=== PATIENT | female | born 1995 | race Caucasian/White ===

== ENCOUNTER 2024-10-02 15:02 | Outpatient (AMB) | payer BC, SELFPAY ==
--- NOTE | 2024-10-02 15:25 | MHC.PC.OV ---
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 patient is experience some depression as well as some fatigue. 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 Childhood asthma, Migraines SurgHx: Wendel teeth FHx: Mom: Fibromyalgia, Mental health problems. Dad: Mental Health. Brother: Adhd SocHx: Nonmoker. ETOH: Social/Infreq. 2-3 times per week 1 drink. 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 1. Little interest or pleasure in doing things: more than half the days 2. Feeling down, depressed, or hopeless: several days 3. Trouble falling or staying asleep, or sleeping too much: more than half the days 4. Feeling tired or having little energy: nearly every day 5. Poor appetite or overeating: several days 6. Feeling bad about yourself - or that you are a failure or have let yourself or your family down: several days 7. Trouble concentrating on things, such as reading the newspaper or watching television: more than half the days 8. Moving or speaking so slowly that other people could have noticed. Or the opposite - being so fidgety or restless that you have been moving around a lot more than usual: several days 9. Thoughts that you would be better off or of hurting yourself in some way: not at all Total score: 13 Depression Screening Interpretation: Positive Depression Screening Done: Yes 72307 - PHQ-9 Billing: Yes Source: Developed by Drs. Mateo Day, Lina Salinas, Juan José Pat and colleagues, with an educational emilio from [email or web address]. Thrive Questionnaire Date Thrive assessed: 10/02/24 I am a: Patient What is your living situation today?: I have a steady place to live Within the past 12 months, did the food you bought not last and you didn't have the money to get more?: Never true Within the past 12 months, did you worry whether your food would run out before you got money to buy more?: Never true Do you have trouble paying for medicines?: No Do you have trouble getting transportation to medical appointments?: No Do you have trouble paying your heating and electricity bill?: No Do you have trouble taking care of your child, family member or friend?: No Do you have trouble with day-to-day activities such as bathing, preparing meals, shopping, managing finances, etc.?: No Are you currently unemployed and looking for a job?: No Are you interested in more education?: Yes Please select the resources that you would like help with: None Currently or been in a relationship where the following occur: No concerns reported THRIVE Score: 0 AUDIT C Alcohol Use Questionnaire (AUDIT-C) 1. How often do you have a drink containing alcohol?: 2-3 times a week 2. How many drinks containing alcohol do you have on a typical day when you are drinking?: 1 or 2 3. How often do you have six or more drinks on one occasion?: Less than monthly Total Score: 4 WINSOME-7 AMB Questionnaire WINSOME-7 Date WINSOME - 7 assessed: 10/02/24 Feeling nervous, anxious, or on edge: 2 = More than half the days Not being able to stop or control worryin = More than half the days Worrying too much about different things: 3 = Nearly every day Trouble relaxin = More than half the days Being so restless that it is hard to sit still: 1 = Several days Becoming easily annoyed or irritable: 3 = Nearly every day Feeling afraid as if something awful might happen: 2 = More than half the days Total WINSOME-7 score (0-4 normal; 5-9 mild; 10-14 moderate; 15-21 severe): 15 Source: Developed by Drs. Mtaeo Day, Lina Salinas, Juan José Pat and colleagues, with an educational emilio from [email or web address]. WINSOME-7 Assessment Billing WINSOME-7 Assessment Tool: WINSOME-7 Assessment 60798 Review of Systems Const Denies chills, Denies fatigue, Denies fever(s), Denies headache(s) and Denies weakness ENT Denies dizziness and Denies headache(s) Card Denies chest pain, Denies lightheadedness, Denies dyspnea and Denies other (Palpitations) Resp Denies cough, Denies dyspnea, Denies wheezing and Denies other ( shortness of breath) Musc Denies numbness and Denies tingling Neuro Denies dizziness, Denies headache(s), Denies numbness, Denies tingling, Denies paresthesias and Denies weakness Psych Denies anxiety and Denies depression Endo Denies fatigue Aller/Immun Denies wheezing Physical exam (Primary Care) Vital Signs: Last Vital Signs Temp 98.5 F 10/02/24 15:32 Pulse 98 10/02/24 15:32 Resp 16 10/02/24 15:32 BP 126/68 10/02/24 15:32 Pulse Ox 99 10/02/24 15:32 Oxygen Delivery Method Room Air 10/02/24 15:32 BMI result Body Mass Index 43.6 Tobacco/Smoking Status: Tobacco use Status Tobacco use date assessed 10/02/24 10/02/24 15:38 e-Cigarette/Vaping Use Never Used 10/02/24 15:38 PHQ-9: PHQ-9 Score PHQ-9: Total score 13 10/02/24 16:35 Depression Screening Interpretation: Positive Thrive Assessment: Date of Thrive Assessment Date Thrive assessed 10/02/24 10/02/24 15:38 Currently or been in a relationship where the following occur: No concerns reported Const General: no acute distress and well developed Nutritional Appearance: well nourished Orientation/consciousness: patient oriented x3 [facility] Head: Yes normocephalic and Yes atraumatic Eyes General: appearance normal, both eyes and all related structures Pupils: Equal, round and reactive pupils present EOM: EOMs intact bilaterally Resp Effort & Inspection: normal respiratory effort Auscultation: clear to auscultation bilaterally Cardio Rate: regular rate Rhythm: regular rhythm Heart sounds: S1 normal heart sound present, S2 normal heart sound present, no gallops, no murmurs and no rubs Neuro General: patient oriented x3 and gait normal Cranial nerves: Yes Equal, round and reactive pupils present Psych Affect: normal affect Coding Level of Care Code New Pt Level 3 (43450) Diagnoses Anxiety with depression F41.8 Migraines G43.909 Difficulty sleeping G47.9 TMJ (dislocation of temporomandibular joint) S03.00XA Laboratory exam ordered as part of routine general medical examination Z00.00 Additional Codes WINSOME-7 Assessment Billing - WINSOME-7 Assessment Tool: WINSOME-7 Assessment 25210 ([id number]) PHQ-9 - 15357 - PHQ-9 Billing: Yes ([id number]) Assessment & Plan Assessment & Plan (1) Anxiety with depression: Code(s): F41.8 - Other specified anxiety disorders Category: Medical Plan: History?of?anxiety?and?depression. She?is?currently?taking?fluoxetine?60?mg?daily?and?still?having?significant?anxiety?depression?with?high?PHQ-9?and?winsome?7?scores. She?has?had?a?therapist?in?the?past?but?currently?does?not?see?a?therapist.??Will?ask?the?nurse?navigator?to?help?connect?her?with?a?therapist. Will?trial?bupropion?as?adjunct?medication?with?her?fluoxetine. (2) Migraines: Code(s): G43.909 - Migraine, unspecified, not intractable, without status migrainosus Category: Medical Plan: History?of?migraines?with?stress/tension?and?neck?pain?triggers. She?has?used?Maxalt?in?the?past?which?had?helped?but?was?giving?her?jaw?pain. Will?try?a?low?dose?of?sumatriptan Start?physical?therapy?for?neck?and?jaw?attention (3) Difficulty sleeping: Code(s): G47.9 - Sleep disorder, unspecified Category: Medical Plan: Likely?secondary?to anxiety?and?depression. Treating?the?underlying?cause If?she?is?still?having?difficulty?sleeping?afterwards?will?look?for?other?causes. (4) TMJ (dislocation of temporomandibular joint): Code(s): S03.00XA - Dislocation of jaw, unspecified side, initial encounter Category: Medical Plan: Referred?to?physical?therapy Also?advised?she?follow-up?with?a?dentist She?can?try?an?jcew-hbw-rlutuup?mouth?guard?as?well (5) Laboratory exam ordered as part of routine general medical examination: Code(s): Z00.00 - Encounter for general adult medical examination without abnormal findings Category: Medical Plan: Check labs Orders: Orders Complete Blood Count Auto Diff Today Z00.00 - Encounter for general adult medical examination without abnormal findings Lipid Panel Today Z00.00 - Encounter for general adult medical examination without abnormal findings TSH reflex Free T4 Today Z00.00 - Encounter for general adult medical examination without abnormal findings UA CC w/rflx Micro + Cult Today Z00.00 - Encounter for general adult medical examination without abnormal findings Vitamin B12 and Folate Today E53.8 - Deficiency of other specified B group vitamins Hepatitis B,C Profile Today Z11.3 - Encounter for screening for infections with a predominantly sexual mode of transmission Syphilis Screen Today Z11.3 - Encounter for screening for infections with a predominantly sexual mode of transmission Comprehensive [place]. Panel Fast Today Z00.00 - Encounter for general adult medical examination without abnormal findings Microalbumin, Random (w Creat) Today I10 - Essential (primary) hypertension Vitamin D 25-OH Total Today E55.9 - Vitamin D deficiency, unspecified CT NG by PCR Today Z11.3 - Encounter for screening for infections with a predominantly sexual mode of transmission HIV Ab/Ag Today Z11.3 - Encounter for screening for infections with a predominantly sexual mode of transmission PT Evaluation and Treatment Today R51.9 - Headache, unspecified, S03.00XA - Dislocation of jaw, unspecified side, initial encounter Referrals Nurse Navigator Referral F41.8 - Other specified anxiety disorders Medications: New fluoxetine 40 mg PO QAM 90 days 90 caps 3RF bupropion HCl 75 mg PO BID 30 days 60 tabs 1RF sumatriptan succinate do not exceed 8 doses per 24 hrs 25 mg PO DAILY 30 days PRN 9 tabs 3RF migraine headache fluoxetine Total Daily Dose 60mg 20 mg PO DAILY 90 days 90 caps 3RF
[2024-10-02 15:32] VITALS: BP 126/68; PULSE 98; RESP 16; TEMP 36.9; O2SAT 99; BMI 43.6
== END 2024-10-02 16:12 | disposition home or self-care (01) ==
LOC: HO.HMCFM 15:03
PROVIDERS: PCP Family Medicine; Visit Provider Family Medicine
DX: F41.8 Other specified anxiety disorders (principal); G43.909 Migraine, unspecified, not intractable, without status migrainosus; G47.9 Sleep disorder, unspecified; S03.00XA Dislocation of jaw, unspecified side, initial encounter; Z00.00 Encounter for general adult medical examination without abnormal findings

== ENCOUNTER → 2024-10-02 15:02 | Outpatient (BNVA) | payer BC, SELFPAY | PROVIDERS: PCP Family Medicine; Visit Provider Family Medicine | DX: F41.8 Other specified anxiety disorders (principal); G43.909 Migraine, unspecified, not intractable, without status migrainosus; G47.9 Sleep disorder, unspecified; S03.00XD Dislocation of jaw, unspecified side, subsequent encounter; Z79.899 Other long term (current) drug therapy | CPT/HCPCS: 96127 ==

== ENCOUNTER 2025-01-09 07:00 | Outpatient (RCR) | payer BC, SELFPAY | END 2025-01-09 09:50 | disposition home or self-care (01) | LOC: HO.PT 07:00 | PROVIDERS: PCP Family Medicine; Visit Provider Family Medicine | DX: M26.623 Arthralgia of bilateral temporomandibular joint (principal); R51.9 Headache, unspecified; S03.00XD Dislocation of jaw, unspecified side, subsequent encounter | CPT/HCPCS: 97014; 97110; 97140; 97161 ==

== ENCOUNTER 2025-02-06 07:38 | Outpatient (REF) | payer BC, SELFPAY ==
--- OUTSIDE RECORDS SUMMARY | 2025-02-06 07:41 | XMS_ITS | Clinical Summary ---
Author Organization [address] [place] [address] [place] [id number] Phone Care Team Providers Care Criminal Justice Program Director Name Role Phone Unavailable Primary Care Provider Unavailabl e Allergies Active Allergy Reactions Criticality Noted Date Comments Adhesive Tape-Silicones 12/09/2021 Other Reaction(s): Rash/Dermatitis Sulfa (Sulfonamide Antibiotics) 12/09/2021 Other Reaction(s): Hives/Urticaria Medications hydrOXYzine HCL (ATARAX) 50 mg tablet Take 1 Tablet by mouth at bedtime. 4 Active fluticasone propionate (FLONASE) 50 mcg/actuation nasal spray 2 sprays each nostril once a day for 10 days. 2 Active rizatriptan (MAXALT) 10 mg tablet Take 1 Tablet by mouth as needed for Migraine for up to 30 days. May repeat in 2 hours if needed 3 Active ondansetron (ZOFRAN) 4 mg tablet Take 1 tablet (4 mg total) by mouth every 8 (eight) hours if needed. 3 Active predniSONE (DELTASONE) 20 mg tablet Take 3 tab by mouth for 2 days, then 2 tab by mouth for 2 days, then 1 tab by mouth for 2 days. Take with food in the morning. 12 tablet 4 Active beclomethasone dipropionate (Qvar RediHaler) 40 mcg/actuation HFA aerosol breath activated inhaler Inhale 1 puff by mouth 2 (two) times a day. 31.8 g 1 5 Active FLUoxetine (PROzac) 20 mg capsule Take 1 Capsule by mouth daily. Take with 40mg for a total of 60 30 capsule 5 Active FLUoxetine (PROzac) 40 mg capsule Take 1 Capsule by mouth daily. Take with 20mg for a total of 60mg daily 30 capsule 5 Active etonogestreL-eth inyl estradioL (NUVARING) 0.12-0.015 mg/24 hr vaginal ring Insert vaginally and leave in place for 3 consecutive weeks, then remove for 1 week. 3 each 5 Active albuterol HFA (PROAIR HFA ; PROVENTIL HFA ; VENTOLIN HFA) 90 mcg/actuation inhaler INHALE 2 PUFFS BY MOUTH EVERY 6 HOURS NEEDED FOR WHEEZE OR FOR SHORTNESS OF BREATH 54 each 1 5 Active Active Problems Problem Noted Date Diagnosed Date Reactive airway disease 09/13/2023 Anxious depression 07/27/2022 Major depressive disorder, r ecurrent episode, moderate (CMS/HCC V24, CMS/[facility] V28) 07/27/2022 Migraine without status migrainosus, not intract able 07/27/2022 Immunizations Name Administration Dates Next Due Influenza Quadravalent, MDCK , 0.5ml, preservative free (Flucelvax) 6mo and older 06/29/2022 Influenza Quadravalent, MDCK , 0.5ml, with preservative (Flucelvax) 6mo and older 06/17/2019 Influenza, Unspecified 06/29/2022 Tdap Tetanus diptheria acell ular pertussis (Boostrix; Adacel) 7yo and older 06/29/2022 Surgical History Surgery Date Site/Laterality Comments OTHER SURGICAL HISTORY 2003 Right PROCEDURE: HISTORY OTHER; COMMENT: ORIF wrist, subsequent hardware removal WISDOM TOOTH EXTRACTION PROCEDURE: HISTORICAL WISDOM TEETH EXTRACTION Medical History Medical History Date Comments Depression with anxiety DX:Depre ssion with anxiety History of migraine DX:History o f migraine Family History Medical History Relation Name Comments No Known Problems Brother No Known Problems Father Diabetes Maternal Grandfather Dementia Maternal Grandmother Parkinson's Disease Maternal Grandmother Other: fibromyalgia Mother Heart attack Paternal Grandfather Stroke Paternal Grandfather Relation Name Status Comments Brother Alive Father Alive Maternal Grandfather Alive Maternal Grandmother (Age 70) Mother Alive Paternal Grandfather Paternal Grandmother Alive Social History Tobacco Use Types Packs/Day Years Used Date Smoking Tobacco: Never Smokeless Tobacco: Never Alcohol Use Standard Drinks/Week Comments Yes 0 (1 standard drink = 0.6 oz pur e alcohol) Comments Unknown Sex and Gender Information Value Date Recorded Sex Assigned at Not on file Legal Sex Female 4:04 PM EST Gender Identity Not on file Sexual Orientation Not on file Obstetrics History Last Filed Vital Signs Vital Sign Reading Time Taken Comments Blood Pressure 110/68 05/24/2024 3:03 PM EST Pulse 106 05/24/2024 3:03 PM EST Temperature 38.1 C (100.5 F) 05/24/2024 3:03 PM EST Respiratory Rate - - Oxygen Saturation 97% 05/24/2024 3:03 PM EST Inhaled Oxygen Concentration - - Weight 112 kg (246 lb) 12/13/2023 8:46 AM EDT Height 165.1 cm (5' 5 ) 12/13/2023 8:46 AM EDT Body Mass Index 40.94 12/13/2023 8:46 AM EDT Plan of Treatment Health Maintenance Due Date Last Done Comments Hepatitis B Vaccines (1 of 3 - 19+ 3-dose series) 2016 HIV Screening 05/07/2022 Hepatitis C Screening 05/07/2022 Social Influencers of Health Screening 05/07/2022 Depression Screening 05/28/2024 COVID-19 Vaccine (2024-2 6 season) 2025 05/04/2021, 09/09/2020, 08/18/2020 Influenza Vaccine (#1) 2025 , 06/29/2022, 06/17/2019 Cervical Cancer Screening: P ap Smear 11/03/2025 11/03/2022, 11/03/2022, 10/27/2022 Cholesterol Screening (Lipid Panel) 06/29/2027 06/29/2022 DTaP,Tdap,and Td Vaccines (2 - Td or Tdap) 06/29/2032 06/29/2022 HIB Vaccines Aged Out No longer eligi ble based on patient's age to complete this topic HPV Vaccines Aged Out No longer eligi ble based on patient's age to complete this topic Hepatitis A Vaccines Aged Out No long er eligible based on patient's age to complete this topic IPV Vaccines Aged Out No longer eligi ble based on patient's age to complete this topic MMR Vaccines Aged Out No longer eligi ble based on patient's age to complete this topic Meningococcal ACWY Vaccine Aged Out N o longer eligible based on patient's age to complete this topic Meningococcal B Vaccine Aged Out No l onger eligible based on patient's age to complete this topic Pneumococcal Vaccine: Pediatrics (0 to 5 Years) and At-Risk Patients (6 to 49 Years) Aged Out No longer eligible b ased on patient's age to complete this topic RSV Immunization Patients Under 20 months Aged Out No longer eligible b ased on patient's age to complete this topic Varicella Vaccines Aged Out No longer eligible based on patient's age to complete this topic Procedures Procedure Name Priority Date/Time Associated Diagnosis Comments HPV Routine 11/03/2022 LIPID PANEL Routine 06/29/2022 from Last 3 Months or Most Recently Relevant to Health Maintenance Results * Cervical Cancer Screening: HPV (11/03/2022) Pathologist [facility] Cervical Cancer Screening: HPV no interpretation , abstracted Historical Provider HEALTH MAINTENANCE Final Result * Lipid panel (06/29/2022) Pathologist [facility] LDL/HDL Ratio 3 0 - 4 Triglycerides 82 0 - 150 mg/dL Cholesterol 166 0 - 200 mg/dL HDL 61 >=40 mg/dL LDL Cholesterol 89 0 - 100 mg/dL Blood Venous blood specimen / Unknown Historical Provider LAB BLOOD ORDERABLES Sheyla l Result from Last 3 Months or Most Recently Relevant to Health Maintenance Insurance [facility] [id number]
[2025-02-06 11:25] LABS: MANUAL DIFF FLAG NO
[2025-02-06 11:34] LABS: Hematocrit 40.6 % (37.0-47.0); Hemoglobin 13.9 g/dl (12.0-16.0); Imm Gran Abs Auto 0.01 X10*3/uL (0.00-0.03); Imm Gran Pct Auto 0.2 % (0.0-0.4); Lymphocytes Absolute Auto 1.8 X10*3/uL (1.2-4.9); Mean Corpuscular HGB Conc 34.2 g/dl (31.0-35.0); Mean Corpuscular Hemoglobin 29.2 pg (27.0-33.0); Mean Corpuscular Volume 85.3 fL (80.0-98.0); NRBC Abs Auto 0.000 X10*3/uL (0.0-0.012); NRBC Pct Auto 0.0 /100WBC (0.0-0.2); Platelet Count 252 X10*3/uL (160-400); Red Blood Count 4.76 X10*6/uL (4.20-5.50); White Blood Count 4.7 X10*3/uL (4.8-10.8)
[2025-02-06 12:11] LABS: Appearance Urine Cloudy; Glucose Urine UA Negative (Negative); PH 6.5 (5.0-9.0); Specific Gravity - Urine 1.025 (1.005-1.025); UMIC TRIGGER UACC YES
[2025-02-06 12:44] LABS: Alanine Aminotransferase 16 U/L (0-31); Albumin Level 4.4 g/dL (3.5-5.0); Alkaline Phosphatase 60 U/L (39-117); Anion Gap 12 (12-20); Aspartate Amino Transferase 18 U/L (5-31); Blood Urea Nitrogen 10 mg/dL (9-16); Calcium 9.3 mg/dL (8.4-10.2); Carbon Dioxide 24 mmol/L (22-29); Chloride 109 mmol/L (96-108); Cholesterol 169 mg/dL (<200); Estimated Glomerular Filt Rate > 60; HDL Cholesterol 59 mg/dL (>40); Potassium 3.9 mmol/L (3.3-5.1); Sodium 141 mmol/L (135-145); Total Protein 7.4 g/dL (6.5-8.0); Triglycerides 64 mg/dL (<150)
[2025-02-06 13:08] LABS: Folate 5.5 ng/mL (> or = 4.0); Vitamin B12 364 pg/mL (200-900)
[2025-02-06 13:45] LABS: Microalbum/Creatinine Ratio Ur 21.6 ug/mg cr (<30)
[2025-02-06 13:52] LABS: CT PCR Urine NOT DETECTED (Not Detect.); NG PCR Urine NOT DETECTED (Not Detect.)
[2025-02-07 08:49] LABS: HBS Num1 1.13 mIU/mL (0-7.99); HBc Num1 0.06 S/CO (0.00-0.79); HBsAGNum1 0.45 S/CO (0.00-0.99); HIV Num 1 0.04 S/CO (0.00-0.99); Hepatitis B Surface Antigen Negative (Negative); ~HepC Num1 0.08 S/CO (0.00-0.79); ~Hepatitis B Surface Antibody NONREACTIVE (Nonreactive); ~Hepatitis C Antibody Nonreactive (Nonreactive)
[2025-02-07 09:29] LABS: Syphilis Screen Nonreactive (Nonreactive)
== END 2025-02-06 07:39 | disposition home or self-care (01) ==
LOC: HO.WFDLDS 07:38
PROVIDERS: Visit Provider Family Medicine
DX: Z00.00 Encounter for general adult medical examination without abnormal findings (principal); Z11.3 Encounter for screening for infections with a predominantly sexual mode of transmission; Z11.8 Encounter for screening for other infectious and parasitic diseases; Z11.59 Encounter for screening for other viral diseases; I10 Essential (primary) hypertension; E53.8 Deficiency of other specified B group vitamins; E55.9 Vitamin D deficiency, unspecified
CPT/HCPCS: 80053; 80061; 81001; 81003; 82043; 82306; 82570; 82607; 82746; 84443; 85025; 86704; 86706; 86780; 86803; 87340; 87389; 87491; 87591

== ENCOUNTER 2025-02-17 11:58 | Outpatient (AMB) | payer BC, SELFPAY ==
--- NOTE | 2025-02-17 12:32 | A.OFFPC_ITS ---
Vital Signs 02/17/25 12:38 Height 5 ft 5 in Weight 262 lb 2 oz BMI 43.6 BP 106/78 Blood Pressure Location Rt brachial Position Sitting Respiration 15 Pulse 94 Pulse Source Pulse Oximeter Temp 98.3 F Temp Source Temporal Artery Scan Pulse Oximetry (%) 96 Oxygen Delivery Method Room Air Intake Visit Reasons: CPE with f/u labs and health maint. Intake Note: Danielle presents in the office today for her annual physical and follow up to her labs. Allergies adhesive Allergy (Verified 02/17/25 12:34) Rash Sulfa (Sulfonamide Antibiotics) Adverse Reaction (Mild, Verified 02/17/25 12:34) hives Medication List - Last Reconciled 02/17/25 by Mitch Murdock MD bupropion HCl 75 mg PO ONCE etonogestrel-ethinyl estradiol 0.12-0.015 mg/24 hr (NuvaRing) 1 vag ring vaginal Q4W fluoxetine 40 mg PO QAM 90 days fluoxetine 20 mg PO DAILY 90 days sumatriptan succinate 25 mg PO DAILY PRN 30 days Tobacco use date assessed: 02/17/25 Dental Screening Dental Screen Date: 02/17/25 Did you have a dental visit in the last 12 months?: No Did you have a dental problem in the last 6 months where you did not have access to dental care?: No Was dental information given to patient?: Patient declined HPI CPE with f/u labs and health maint. HPI Details 29 y/o female presents for a CPE with f/ u labs and health maint. Labs drawn 02/06/25. Reviewed labs with pt. Triglycerides 64. TC 169. LDL 98. HDL 59. She is on bupropion 75mg, fluoxetine for her mood. She notes medication regimen working well. She declines therapy today. Reports GERD. Has been taking famotidine daily. Notes symptoms have worsened the past couple months. Pt notes she had a pap smear about a year ago at [place] which she says was normal. HPI Comments History of Present Illness Details Documentation assistance for Mitch Murdock MD, was provided by Demarco Rosado,? [employer] Message Broker Developer on 02/17/2025 at 1:12 PM EST. I, Dr. Murdock, have read, observed, and verified documentation. ? [facility] Medical History (Updated 02/17/25 @ 13:15 by Demarco Rosado) Broken arm Surgical History (Updated 10/02/24 @ 15:48 by SMA Benson) [place] teeth removed Family History (Updated 02/17/25 @ 12:38 by Lucila Kwok CMA) Father FH: mental illness Depression with anxiety Nicotine addiction Mother FH: mental illness Depression with anxiety Nicotine addiction Maternal Grandfather FH: mental illness Depression with anxiety PTSD (post-traumatic stress disorder) Maternal Grandmother FH: mental illness Other Substance abuse Social History (Updated 02/17/25 @ 12:38 by Lucila Kwok CMA) Housing: Apartment Alcohol intake: current Patient Tobacco Use Status: Never used Tobacco e-Cigarette/Vaping Use: Currently Using Second Hand Smoke Exposure: No Substance Use Type: Marijuana service: No Current occupational status: employed 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 Current occupational exposures/hazards: No Cognitive needs: No Hearing needs: No Vision needs: Yes Questionnaire Thrive Questionnaire Date Thrive assessed: 09/26/24 I am a: Patient What is your living situation today?: I have a steady place to live Within the past 12 months, did the food you bought not last and you didn't have the money to get more?: Never true Within the past 12 months, did you worry whether your food would run out before you got money to buy more?: Never true Do you have trouble paying for medicines?: No Do you have trouble getting transportation to medical appointments?: No Do you have trouble paying your heating and electricity bill?: No Do you have trouble taking care of your child, family member or friend?: No Do you have trouble with day-to-day activities such as bathing, preparing meals, shopping, managing finances, etc.?: No Are you currently unemployed and looking for a job?: No Are you interested in more education?: Yes Please select the resources that you would like help with: None Currently or been in a relationship where the following occur: No concerns reported THRIVE Score: 0 WINSOME-7 AMB Questionnaire WINSOME-7 Date WINSOME - 7 assessed: 10/02/24 Source: Developed by Drs. Mateo Day, Lina Salinas, Juan José Pat and colleagues, with an educational emilio from [employer]. Review of Systems Const Denies chills, Denies fatigue, Denies fever(s), Denies headache(s) and Denies weakness Eyes Denies change in vision ENT Denies dizziness, Denies headache(s), Denies hearing loss, Denies nasal congestion, Denies sinus pain, Denies sinus pressure and Denies sore throat Card Denies chest pain, Denies lightheadedness, Denies dyspnea and Denies other (palpitations) Resp Denies cough, Denies dyspnea and Denies wheezing GI Denies abdominal pain, Denies melena, Denies hematochezia, Denies change in bowel habits, Denies dyspepsia and Denies nausea Denies hematuria and Denies dysuria Musc Denies abnormal gait, Denies myalgias, Denies arthralgias, Denies numbness and Denies tingling Skin/Breast Denies rash, Denies unusual bruising and Denies wounds Neuro Denies abnormal gait, Denies dizziness, Denies headache(s), Denies memory loss, Denies numbness, Denies Sensory deficit (Neuro), Denies tingling and Denies weakness Psych Denies anxiety, Denies depression and Denies memory loss Endo Denies cold intolerance, Denies fatigue, Denies heat intolerance, Denies polydipsia and Denies polyuria Jean-Pierre/Lymph Denies easy bleeding and Denies easy bruising Aller/Immun Denies wheezing Physical exam (Primary Care) Vital Signs: Last Vital Signs Temp 98.3 F 02/17/25 12:38 Pulse 94 02/17/25 12:38 Resp 15 02/17/25 12:38 BP 106/78 02/17/25 12:38 Pulse Ox 96 02/17/25 12:38 Oxygen Delivery Method Room Air 02/17/25 12:38 BMI result Body Mass Index 43.6 Tobacco/Smoking Status: Tobacco use Status Tobacco use date assessed 02/17/25 02/17/25 12:41 Patient Tobacco Use Status Never used Tobacco 02/17/25 12:41 e-Cigarette/Vaping Use Currently Using 02/17/25 12:41 Thrive Assessment: Date of Thrive Assessment Date Thrive assessed 09/26/24 02/17/25 12:33 Currently or been in a relationship where the following occur: No concerns reported Const General: no acute distress, well developed, alert and awake Nutritional Appearance: obese morbidly obese Orientation/consciousness: patient oriented x3 HENMT Head: Yes normocephalic and Yes atraumatic Ears: hearing grossly normal bilaterally and TM's normal bilaterally General nose exam: Normal external nose present and Normal nares present Mouth: Normal oral and palatal mucosa present and moist mucous membranes Teeth and gingiva: dentition normal Throat: Yes posterior oropharynx normal Eyes General: appearance normal, both eyes and all related structures Pupils: Equal, round and reactive pupils present and Pupil accommodation reflex normal EOM: EOMs intact bilaterally Neck Neck: Yes normal visual inspection, Yes no lymphadenopathy and Yes trachea midline Thyroid: Thyroid normal Carotids: no bruits Lymphatic: no lymphadenopathy noted Chest Chest palpation & inspection: normal inspection of the chest Resp Effort & Inspection: normal respiratory effort Auscultation: clear to auscultation bilaterally Cardio Rate: regular rate Rhythm: regular rhythm Heart sounds: S1 normal heart sound present, S2 normal heart sound present, no gallops, no murmurs and no rubs Bruits: no abdominal aortic bruits and no carotid bruits GI Palpation (GI): No Abdominal aortic bruit present, Soft to palpation, nontender, No hepatosplenomegaly present and No Rebound tenderness present Auscultation: normal bowel sounds General: Yes no CVA tenderness Back/Spine/Pelvis Back: no CVA tenderness Cervical Spine: cervical ROM normal and No Cervical spine tenderness Thoracic/Lumbar Spine: thoraco-lumbar ROM normal, No pain with thoraco-lumbar ROM, No thoracic spinal tenderness and No lumbar spinal tenderness Skin Lesions: no lesions Rashes: no rashes Trauma: no lacerations or abrasions Wounds: no wounds Nails: normal Neuro General: patient oriented x3 Cranial nerves: Yes Equal, round and reactive pupils present Cognition (Neuro): normal cognition Gait exam (Neuro): Normal gait present Motor exam (neuro): 5/5 motor strength present throughout Sensory Exam: No Sensory deficit (Neuro) Deep tendon reflexes (DTR's): Right patellar reflex intensity grade: 2+ and Left patellar reflex intensity grade: 2+ Extrem General: Yes normal to inspection and No edema Psych Appearance: grossly normal Affect: normal affect Attitude: cooperative Thought process: Normal thought process present Coding Level of Care Code Est Pt Level 3 (84164) Est Pt Prev Care 18-39y(11022) Diagnoses Adult general medical exam Z00.00 Anxiety with depression F41.8 GERD (gastroesophageal reflux disease) K21.9 Screening for cervical cancer Z12.4 Assessment & Plan Assessment & Plan (1) Adult general medical exam: Code(s): Z00.00 - Encounter for general adult medical examination without abnormal findings Category: Medical Plan: 29-year-old female presents for complete physical exam Encouraged healthy diet with active lifestyle and plenty of exercise (2) Anxiety with depression: Code(s): F41.8 - Other specified anxiety disorders Category: Medical Plan: Had added bupropion at her last visit. Taking 75 mg q.a.m. She continues fluoxetine 60 mg daily Patient says this regimen is working well To continue current medications as prescribed Patient was contacted by therapist but she says therapist did not follow-up She does not feel she needs a therapist at this time but will let me know if changes her mind. (3) GERD (gastroesophageal reflux disease): Code(s): K21.9 - Gastro-esophageal reflux disease without esophagitis Category: Medical Plan: Significant GERD despite using famotidine Will give her a script for omeprazole Discussed lifestyle changes for GERD Referred to GI (4) Screening for cervical cancer: Code(s): Z12.4 - Encounter for screening for malignant neoplasm of cervix Category: Medical Plan: Patient says she had a Pap smear about a year ago and [facility] which she says was normal Will request report Orders: Orders Complete Blood Count Auto Diff Today Z00.00 - Encounter for general adult medical examination without abnormal findings TSH reflex Free T4 Today Z00.00 - Encounter for general adult medical examination without abnormal findings Comprehensive Milo. Panel Fast Today Z00.00 - Encounter for general adult medical examination without abnormal findings Microalbumin, Random (w Creat) Today I10 - Essential (primary) hypertension Lipid Panel Today Z00.00 - Encounter for general adult medical examination without abnormal findings UA CC w/rflx Micro + Cult Today Z00.00 - Encounter for general adult medical examination without abnormal findings Referrals Gastroenterology Referral K21.9 - Gastro-esophageal reflux disease without esophagitis Medications: Changed From bupropion HCl 75 mg PO ONCE To bupropion HCl 75 mg PO QAM 90 tabs 2RF 90 days
[2025-02-17 12:38] VITALS: BP 106/78; PULSE 94; RESP 15; TEMP 36.8; O2SAT 96; BMI 43.6
--- OUTSIDE RECORDS SUMMARY | 2025-02-17 14:51 | XMS_ITS | Clinical Summary ---
Author Organization [address] [place] [address] [place] [id number] Phone Care Team Providers Care Site Reliability Engineer Name Role Phone Unavailable Primary Care Provider [...] disorder, r ecurrent episode, moderate (CMS/HCC V24, CMS/[facility] V28) 07/27/2022 Migraine without status migrainosus, not [...] * Cervical Cancer Screening: HPV (11/03/2022) Pathologist [facility] Cervical Cancer Screening: HPV no interpretation , abstracted Historical Provider HEALTH MAINTENANCE Final Result * Lipid panel (06/29/2022) Pathologist [place] [facility] LDL/HDL Ratio 3 0 - 4 Triglycerides 82 0 - 150 mg/dL Cholesterol 166 0 - 200 mg/dL HDL 61 >=40 mg/dL LDL Cholesterol 89 0 - 100 mg/dL Blood Venous blood specimen / Unknown Historical Provider LAB BLOOD ORDERABLES Sheyla l Result from Last 3 Months or Most Recently Relevant to Health Maintenance Insurance [facility]
== END 2025-02-17 13:23 | disposition home or self-care (01) ==
LOC: HO.HMCFM 11:58
PROVIDERS: PCP Family Medicine; Visit Provider Family Medicine
DX: Z00.00 Encounter for general adult medical examination without abnormal findings (principal); K21.9 Gastro-esophageal reflux disease without esophagitis; F41.8 Other specified anxiety disorders